=== PATIENT | female | born 1950 | race Two or more races ===

== ENCOUNTER 2024-12-08 08:07 | Emergency (ER) | payer MEDICARE, MEDICAID, SELFPAY ==
[2024-12-08 08:09] VITALS: BMI 24.5
--- NOTE | 2024-12-08 08:12 | EKG_ITS ---
[facility] Test Date: 2024-12-08 Pat Name: KLEVER JOHNSON Department: Room: - Gender: Female [employer]: : [id number] Requested By: ED Temporary Provider Order Number: [id number] Reading MD: ED Temporary Provider Measurements Intervals [place] Rate: 92 P: 63 PA: 159 QRS: 48 QRSD: 93 T: 41 QT: 364 QTc: 452 Interpretive Statements SINUS RHYTHM POSSIBLE LEFT ATRIAL ENLARGEMENT [-0.1mV P-WAVE IN V1/V2] POSSIBLE LEFT VENTRICULAR HYPERTROPHY [VOLTAGE CRITERIA PLUS LAE OR QRS WIDENING] NONSPECIFIC ST & T-WAVE ABNORMALITY Compared to ECG 11/27/2023 10:28:35 T-wave abnormality now present /store/S0/[id number].pdf
[2024-12-08 08:30] VITALS: BP 159/85; PULSE 106; RESP 16; TEMP 37.2; O2SAT 95; BMI 24.1
--- NOTE | 2024-12-08 08:31 | XR_ITS ---
Examination: PA lateral chest 2 views TECHNIQUE: Upright PA lateral chest 2 views Exam date and time: December 08, 2024 0846 hours Comparison November 27, 2023 INDICATIONS: Coughing beginning 5 days ago. FINDINGS: Bilateral foci of parenchymal disease consistent with pneumonia Normal heart size Basilar bronchitis pattern Prominent osteopenia IMPRESSION: Scattered areas of bilateral pneumonia
--- NOTE | 2024-12-08 08:32 | EDRME_ITS ---
Rapid Medical Screening Exam RME Arrival date/time: 12/08/24 08:07 74-year-old female presents to the emergency department complaints of right- sided chest pain worse with movement Chief Complaint: Chest Pain Vital signs: Vital Signs Temperature 98.9 F 12/08/24 08:30 Pulse Rate 106 H 12/08/24 08:30 Respiratory Rate 16 12/08/24 08:30 Blood Pressure 159/85 H 12/08/24 08:30 Pulse Oximetry (%) 95 12/08/24 08:30 Oxygen Delivery Method Room Air 12/08/24 08:30
[2024-12-08 09:21] LABS: Basophils # (Auto) 0.1 Thou/mm3 (0.0-0.2); Basophils % (Auto) 1 % (0-2.5); Eosinophils # (Auto) 0.2 Thou/mm3 (0.0-0.5); Eosinophils % (Auto) 2 % (0-10); Hematocrit 41.2 % (36.0-46.0); Hemoglobin 13.5 g/dL (12.0-16.0); Immature Granulocytes % (Auto) 0 % (0-0); Immature Granulocytes Auto 0.03 Thou/mm3 (0.00-0.00); Lymphocytes # (Auto) 2.6 Thou/mm3 (1.0-4.8); Lymphocytes % (Auto) 24 % (10-50); Mean Corpuscular HGB Conc 32.8 g/dl (31.0-37.0); Mean Corpuscular Hemoglobin 27.7 pg (25.0-35.0); Mean Corpuscular Volume 84 fL (80-100); Monocytes # (Auto) 1.1 Thou/mm3 (0.0-0.8); Monocytes % (Auto) 10 % (0-12); Neutrophils # (Auto) 6.9 Thou/mm3 (1.8-7.7); Neutrophils % (Auto) 64 % (37-80); Nucleated Red Blood Cell % 0 /100 WBC (0); Platelet Count 145 Thou/mm3 (140-440); RDW Standard Deviation 42.5 fL (36.4-46.3); Red Blood Count 4.88 Miln/mm3 (4.00-5.20); White Blood Count 10.8 Thou/mm3 (3.6-11.0)
[2024-12-08 09:40] LABS: INR 1.1 (0.9-1.3); Partial Thromboplastin Time 28.2 Seconds (22.0-36.0); Prothrombin Time 11.6 Seconds (9.0-12.2)
[2024-12-08 09:42] LABS: B-Type Natriuretic Peptide 82 pg/mL (0-100)
[2024-12-08 09:53] LABS: Alanine Aminotransferase < 7 U/L (10-49); Albumin, Serum 4.2 gm/dL (3.4-4.8); Albumin/Globulin Ratio 1.3 (1.2-2.2); Alkaline Phosphatase 82 U/L (46-116); Anion Gap 8 (7-16); Aspartate Amino Transferase 16 U/L (0-34); BUN/Creatinine Ratio 16 Ratio (12-20); Bilirubin,Total 1.3 mg/dL (0.3-1.2); Blood Urea Nitrogen 11 mg/dL (9-23); Calcium 9.4 mg/dL (8.3-10.6); Calcium (Corrected) 9.4 mg/dL (8.5-10.1); Carbon Dioxide 26.9 mMol/L (20.0-31.0); Chloride 104 mMol/L (98-107); Creatinine (Component) 0.7 mg/dL (0.6-1.3); Globulin 3.2 gm/dL (2.3-3.5); Glucose 108 mg/dL (74-106); Lipase 35 U/L (12-53); Magnesium 1.9 mg/dL (1.6-2.6); Osmolality,Calculated 277 (275-295); Potassium 3.3 mMol/L (3.4-5.1); Sodium 139 mMol/L (136-145); Total Protein 7.4 gm/dL (5.7-8.2); Troponin I < 0.002 ng/mL (0.0-0.045); eGFR > 60 See Note
--- NOTE | 2024-12-08 11:13 | PD.EDCHEST ---
ED Chest Pain RME/HPI General Chief Complaint: Chest Pain Stated Complaint: RIGHT SIDE CHEST PAIN SINCE 99 Time Seen by Provider: 12/08/24 11:13 Arrival date/time: 12/08/24 08:07 74 year old female with past medical history of HTN with c/o of chest pain since 99. Pt report intermittent dry cough for 2 weeks. LOCATION: Chest SEVERITY: Symptoms are described as being severe with limitations on activities of daily living CONTEXT: The patient is unable to identify any inciting events. DURATION/TIMING: The symptoms started approximately 2 weeks of cough, chest pain for 1 day due to cough ASSOCIATED SYMPTOMS: The patient is unable to identify any other associated symptoms. MODIFYING FACTORS: The patient is unable to identify any alleviating or aggravating symptoms. PERTINENT ROS: no fevers, no ripping or tearing sensations, denies any lower extremity edema and no unilateral swelling, no shortness of breath no nausea,vomiting, diarrhea, no dizziness/headache no rash no loc/syncope episode no abd/back pain no dsyuria,urgency,frequency REVIEW OF SYSTEMS: See History of Present Illness - with the exception of those mentioned in the history of present illness, all other systems reviewed and reported as negative GENERAL: In general the patient is awake, interactive, in an emergency department gurney. HEAD/EYES/EARS/NOSE/THROAT: normo-cephalic, atraumatic, mucus membranes are moist, anicteric, palpebral conjunctiva is pink, trachea is midline. CARDIOVASCULAR: regular rate and regular rhythm, no murmurs, heart sounds are not distant, strong pulses in all four extremities that are equal and symmetric bilateral upper and lower extremities, normal capillary refill. CHEST/PULMONARY: normal chest rise and fall, good air movement, clear to auscultation bilaterally, normal inspiratory to expiratory ratios without evidence of respiratory distress. NECK: No midline/Paraspinal tenderness, no step off ROM/Strenght intact No Kernig and bruzinski sign. No trauma ABDOMEN: soft, not tender, no masses appreciated BACK: normal range of motion without pain. NEUROLOGICAL: cranio-facial features are symmetric, moves all four extremities equally without obvious limitations or weakness. EXTREMITY: no tenderness to palpation over the long bones or large joints of the bilateral upper and lower extremities, no joint swelling, no joint erythema, no signs of trauma, no unilateral leg swelling and no peripheral edema. SKIN: warm, dry, well-perfused, no jaundice, no rash, no telangiectasias or petechia. PSYCH: calm, cooperative, no evidence of psychosis or agitation RME / HPI RME / HPI narrative: 12/08/24 08:07 74-year-old female presents to the emergency department complaints of right-sided chest pain worse with movement Related Data Previous Rx's ?Medication ?Instructions ?Recorded hydrocodone 5 mg-acetaminophen 325 1 tab PO QID PRN pain #14 tabs 09/07/18 mg tablet (Garfield) naproxen 500 mg tablet 500 mg PO Q12H PRN Headache #20 10/30/19 tabs sulfamethoxazole 800 1 tab PO BID #14 tabs 10/30/19 mg-trimethoprim 160 mg tablet (Bactrim DS) ibuprofen 600 mg tablet 600 mg PO Q6H PRN pain #10 tabs 04/09/23 levofloxacin 750 mg tablet 750 mg PO QDAY #7 tabs 04/09/23 cephalexin 500 mg capsule 500 mg PO TID #21 caps 05/03/23 potassium chloride 10 mEq 10 meq PO QDAY #3 tabs 11/27/23 tablet,extended release amoxicillin 875 mg-potassium 1 tab PO BID #14 tabs 12/08/24 clavulanate 125 mg tablet azithromycin 250 mg tablet 250 mg PO QDAY pna 4 days #4 tabs 12/08/24 benzonatate 200 mg capsule 200 mg PO BID PRN cough #30 caps 12/08/24 Allergies Allergy/AdvReac Type Severity Reaction Status Date / Time No Known Allergies Allergy Verified 12/08/24 08:10 Course Course Course Narrative: Patient presenting with cough and fever.? VS were reviewed and showed wnl, .? ?Lung exam noted to have clear.? Obtained and reviewed CXR, which showed bilateral pna .? ?At this time, it is felt that the most likely explanation for the patient's symptoms is pneumonia.? I also considered URI, bronchitis, pneumonia, pneumothorax, PE, but this appears less likely considering the data gathered thus far.? Patient was provided first dose of antibiotics and cough medication? while in the ED.? ? Supportive treatment options were discussed.? Patient to follow up with PCP closely.?? Impression:?? Community acquired pneumonia Plan:? Prescribed azithromycin, augmentin, tessalon pearles? Advised Pt on supportive measures, including smoking cessation and avoidance of second-hand smoke, OTC acetaminophen or ibuprofen for fever and body aches, advancement of fluids as tolerated, rest, and frequent hand-washing w/ soap and water. Instructed Pt to monitor for shaking chills or T>100.5degF, persistent cough >7-10d, hemoptysis, delirium or confusion, cyanosis, and respiratory distress.? Instructed Pt to f/up w/ PCP or ETC should Sx worsen or not improve.? Quality Measures none Orders Category Date Time Status EKG (ED ONLY) *Do not use* NOW Care 12/08/24 08:12 Completed EKG (ED Only) Stat Exams 12/08/24 08:12 Draft XR chest 2V Stat Exams 12/08/24 08:31 Completed B-Type Natriuretic Peptide Stat Lab 12/08/24 08:54 Completed CBC Stat Lab 12/08/24 08:54 Completed Comprehensive Metabolic Panel Stat Lab 12/08/24 08:54 Completed Lipase Stat Lab 12/08/24 08:54 Completed Magnesium Stat Lab 12/08/24 08:54 Completed Partial Thromboplastin Time Stat Lab 12/08/24 08:54 Completed Prothrombin Time with INR Stat Lab 12/08/24 08:54 Completed Troponin I Stat Lab 12/08/24 08:54 Completed Amoxicillin/Pot Clav 875 [Augmentin 875] Med 12/08/24 11:33 Discontinued 1 tab PO X1 ONE Azithromycin Po [Zithromax PO] Med 12/08/24 11:31 Discontinued 500 mg PO X1 ONE Benzonatate [Tessalon] Med 12/08/24 11:31 Discontinued 200 mg PO X1 ONE Vital Signs Vital signs: Vital Signs Temperature 98.9 F 12/08/24 08:30 Pulse Rate 106 H 12/08/24 08:30 Respiratory Rate 16 12/08/24 08:30 Blood Pressure 159/85 H 12/08/24 08:30 Pulse Oximetry (%) 95 12/08/24 08:30 Oxygen Delivery Method Room Air 12/08/24 08:30 Procedures -ED EKG Interpretation #1: Date of EK12/08/24 Rate: 92 EKG Impression: No acute ST-T changes, No ectopy, Sinus arrhythmia and No ischemic changes Chest Pain Patient data External records reviewed:: [facility] previous records Clinical information provided by:: patient Social determinants that could affect healthcare access:: none Patient has the following chronic illnesses:: in chart How is presenting disease/condition affected by chronic disease/condition?: uneffected by Evaluation data The following diagnostics were reviewed and interpreted by me:: lab results, radiology exam(s) and EKG tracing(s) Lab and/or radiology exams considered but not ordered:: n/a Interpretation Summary: cbc/cmp wnl trop negative bnp wnl cxr: Bilateral foci of parenchymal disease consistent with pneumonia Normal heart size Basilar bronchitis pattern Prominent osteopenia IMPRESSION: Scattered areas of bilateral pneumonia Medications / Prescriptions Medications or Prescriptions considered but not ordered:: n/a Medication administrations:: Medication Administration History Discontinued Medications Amoxicillin/Clavulanate Potassium (Amoxicillin/Pot Clav 875 Tablet) 1 tab PO X1 ONE Stop: 12/08/24 11:34 Azithromycin (Azithromycin 250 Mg Tablet) 500 mg PO X1 ONE Stop: 12/08/24 11:32 Benzonatate (Benzonatate 100 Mg Capsule) 200 mg PO X1 ONE; Protocol Stop: 12/08/24 11:32 n/a Consultations Consultation(s) initiated? (list below): No Diagnosis Most likely diagnosis given after review of the tests above:: bilateral pna Admission Indicated Admission indicated?: not indicated Admission Request Was there a request for admission?: No Disposition Plan Disposition Plan: Discharge Discharge Attestation Discharge Attestation: The patient and all family members were given an opportunity to ask questions and understood the discharge instructions. Discharge instructions specifically effects, indications for sooner follow up or return to the emergency department, and the expected course of current diagnosis. Patient condition: Stable Discharge Plan Plan Patient Disposition: HOME (Self Care) Health Concerns: Follow with PMD as directed Take tylenol or motrin as need Return to ED if sx worsen Prescriptions/Referrals Prescriptions/Med Rec: New amoxicillin-pot clavulanate 875-125 mg tablet 1 tab PO BID Qty: 14 0RF benzonatate 200 mg capsule 200 mg PO BID PRN (Reason: cough) Qty: 30 0RF azithromycin 250 mg tablet 250 mg PO QDAY 4 Days Qty: 4 0RF Rx Instructions: start on day 2 of therapy No Action hydrocodone-acetaminophen [Garfield] 5-325 mg tablet 1 tab PO QID MDD 4 PRN (Reason: pain) Qty: 14 0RF naproxen 500 mg tablet 500 mg PO Q12H PRN (Reason: Headache) Qty: 20 0RF Rx Instructions: administer with food or milk sulfamethoxazole-trimethoprim [Bactrim DS] 800-160 mg tablet 1 tab PO BID Qty: 14 0RF cephalexin 500 mg capsule 500 mg PO TID Qty: 21 0RF potassium chloride 10 mEq tablet extended release 10 meq PO QDAY Qty: 3 0RF levofloxacin 750 mg tablet 750 mg PO QDAY Qty: 7 0RF ibuprofen 600 mg tablet 600 mg PO Q6H PRN (Reason: pain) Qty: 10 0RF Referrals: Dennis Irby MD [Primary Care Provider] - In 1 week Problem List Clinical Impression: Bilateral pneumonia Patient/Caregiver Discharge Instructions Education Materials: ED Pneumonia (Adult) Print Language: Tamazight Stand Alone Forms: Dyan Award Info., Patient Portal Info Letter
[2024-12-08 11:27] VITALS: BP 180/99; PULSE 99; RESP 19; TEMP 37; O2SAT 96
[2024-12-08] MEDS: AMOXICILLIN/POT CLAV 875 TABLET 1 TAB PO (12:03)
[2024-12-08] MEDS: AZITHROMYCIN 250 MG TABLET 500 MG PO (12:03)
[2024-12-08] MEDS: BENZONATATE 100 MG CAPSULE 200 MG PO (12:23)
== END 2024-12-08 12:28 | disposition home or self-care (01) ==
PROVIDERS: Nurse Practitioner Primary Care; Emergency Provider Emergency Medicine; PCP Family Medicine
DX: J18.9 Pneumonia, unspecified organism (principal); I10 Essential (primary) hypertension
CPT/HCPCS: 36415; 71046; 80053; 83690; 83735; 83880; 84484; 85025; 85610; 85730; 93005; 99283; A9270

== ENCOUNTER 2024-12-19 10:46 | Emergency (ER) | payer MEDICARE, MEDICAID, SELFPAY ==
[2024-12-19 11:38] VITALS: BP 191/85; PULSE 83; RESP 14; TEMP 36.5; O2SAT 95
--- NOTE | 2024-12-19 12:17 | XR_ITS ---
Examination: Shoulder,left, 3 views Technique: Shoulder AP internal rotation, AP external rotation, Y view shoulder, 3 views Exam date and time :December 19, 2024 at 1226 hours INDICATIONS: Patient fell today with injury to the shoulder, shoulder pain. FINDINGS: Acute markedly displaced left humeral neck fracture, the shaft the humerus displaced medially at least 30 mm No shoulder dislocation IMPRESSION: Acute markedly displaced fracture left humeral neck
--- NOTE | 2024-12-19 12:17 | XR_ITS ---
Examination: Humerus 2 views left Technique: Humerus, AP lateral 2 views Date and time of exam: December 19, 2024 1224 hours INDICATIONS: Patient fell today with injury to the arm, arm pain. FINDINGS: Acute mildly displaced fracture humeral neck, upper humeral shaft displaced medially at least 30 mm More distal shaft of the humerus intact IMPRESSION: Acute comminuted markedly displaced fracture left humeral neck
--- NOTE | 2024-12-19 14:20 | XR_ITS ---
Examination: AP chest single view TECHNIQUE: Upright AP chest single view Exam date and time: December 19, 2024 1459 hours Comparison December 08, 2024 INDICATIONS: Patient fell today with injury to the chest, chest pain FINDINGS: Acute displaced fracture humeral neck on the left Focal nodular parenchymal disease right midlung and parenchymal disease left base again noted as well as right base Normal heart size IMPRESSION: Acute displaced comminuted fracture left humeral neck Bilateral parenchymal areas of disease consistent with pneumonia
--- NOTE | 2024-12-19 14:36 | XR_ITS ---
Examination: CT left shoulder, without contrast. 2-D sagittal reconstructions. 2-D coronal reconstructions. 3-D reconstructions. Date and time of exam:December 19, 2024 1511 hours INDICATIONS: Patient fell today with injury to left shoulder, left shoulder pain CTDI: vol (mGy):5.03 DLP: (mGycm):115 Technique: Multiple 1.25 mm axial sections of the left shoulder have been obtained. 2-D sagittal and coronal reconstructions have been obtained. 3-D reconstructions have been obtained. Low dose protocols were performed. One or more of the following dose reduction techniques were used; automated exposure control, adjustment of the mA and/or KV according to patient size, use of iterative reconstruction technique. Findings: Acute comminuted fracture left humeral neck Marked displacement at the fracture site, the humeral shaft displaced medially at least 3 cm relative to the humeral head No dislocation of the humeral head No AC joint separation Fracture line from the humeral neck fracture extends to the greater tuberosity of the humeral head axial image 40 Scapula intact No pneumothorax No definite rib fractures IMPRESSION: Acute comminuted markedly displaced fracture left humeral neck
[2024-12-19] MEDS: HYDROcodone/APAP 10/325 TAB PO (15:27)
--- NOTE | 2024-12-19 15:29 | PD.EDFALL ---
ED Fall Injury RME/HPI General Chief Complaint: Fall Stated Complaint: Fall left upper arm injury Time Seen by Provider: 12/19/24 11:45 Arrival date/time: 12/19/24 10:46 Related Data Previous Rx's ?Medication ?Instructions ?Recorded hydrocodone 5 mg-acetaminophen 325 1 tab PO QID PRN pain #14 tabs 09/07/18 mg tablet (Ryegate) naproxen 500 mg tablet 500 mg PO Q12H PRN Headache #20 10/30/19 tabs sulfamethoxazole 800 1 tab PO BID #14 tabs 10/30/19 mg-trimethoprim 160 mg tablet (Bactrim DS) ibuprofen 600 mg tablet 600 mg PO Q6H PRN pain #10 tabs 04/09/23 levofloxacin 750 mg tablet 750 mg PO QDAY #7 tabs 04/09/23 cephalexin 500 mg capsule 500 mg PO TID #21 caps 05/03/23 potassium chloride 10 mEq 10 meq PO QDAY #3 tabs 11/27/23 tablet,extended release amoxicillin 875 mg-potassium 1 tab PO BID #14 tabs 12/08/24 clavulanate 125 mg tablet benzonatate 200 mg capsule 200 mg PO BID PRN cough #30 caps 12/08/24 Allergies Allergy/AdvReac Type Severity Reaction Status Date / Time No Known Allergies Allergy Verified 12/19/24 10:49 Course Orders Category Date Time Status EKG (ED ONLY) *Do not use* NOW Care 12/19/24 14:36 Active Insert IV NOW Care 12/19/24 14:[address] shoulder LT wo con Stat Exams 12/19/24 14:36 Taken EKG (ED Only) Stat Exams 12/19/24 14:36 Ordered XR chest 1V Stat Exams 12/19/24 14:20 Completed XR humerus LT MIN 2V Stat Exams 12/19/24 12:17 Completed XR shoulder LT min 2V Stat Exams 12/19/24 12:17 Completed CBC Stat Lab 12/19/24 15:21 Received CMP [Comprehensive Metabolic Panel] Stat Lab 12/19/24 15:21 Received Acetaminophen Tab [Tylenol Tab] Med 12/19/24 14:00 Discontinued 650 mg PO X1 ONE HYDROcodone/APAP 10/325 [Ryegate 10/325] Med 12/19/24 15:25 Discontinued 1 tab PO X1 ONE Morphine Inj Med 12/19/24 14:20 Discontinued 2 mg IVP X1 ONE Ondansetron Inj [Zofran Inj] Med 12/19/24 14:20 Discontinued 4 mg IV X1 ONE Vital Signs Vital signs: Vital Signs Temperature 97.7 F 12/19/24 11:38 Pulse Rate 83 12/19/24 11:38 Respiratory Rate 14 12/19/24 11:38 Blood Pressure 191/85 H 12/19/24 11:38 Pulse Oximetry (%) 95 12/19/24 11:38 Oxygen Delivery Method Room Air 12/19/24 11:38 Fall Medications / Prescriptions Medication administrations:: Medication Administration History Discontinued Medications Acetaminophen (Acetaminophen 325 Mg Tablet) 650 mg PO X1 ONE Stop: 12/19/24 14:01 Last Admin: 12/19/24 13:57 Dose: Not Given Documented By: LILY Non-Admin Reason: Cancelled by Provider Hydrocodone Bitart/Acetaminophen (Hydrocodone/Apap 10/325 Tab) 1 tab PO X1 ONE Stop: 12/19/24 15:26 Last Admin: 12/19/24 15:27 Dose: 1 tab Documented By: LILY Morphine Sulfate (Morphine Sulf Inj 10 Mg/Ml Vial) 2 mg IVP X1 ONE Stop: 12/19/24 14:21 Last Admin: 12/19/24 15:28 Dose: Not Given Documented By: LILY Non-Admin Reason: Cancelled by Provider Ondansetron HCl (Ondansetron Inj 2 Mg/Ml Inj 2 Ml) 4 mg IV X1 ONE; Protocol Stop: 12/19/24 14:21 Discharge Plan Prescriptions/Referrals Prescriptions/Med Rec: No Action hydrocodone-acetaminophen [Ryegate] 5-325 mg tablet 1 tab PO QID MDD 4 PRN (Reason: pain) Qty: 14 0RF naproxen 500 mg tablet 500 mg PO Q12H PRN (Reason: Headache) Qty: 20 0RF Rx Instructions: administer with food or milk sulfamethoxazole-trimethoprim [Bactrim DS] 800-160 mg tablet 1 tab PO BID Qty: 14 0RF cephalexin 500 mg capsule 500 mg PO TID Qty: 21 0RF potassium chloride 10 mEq tablet extended release 10 meq PO QDAY Qty: 3 0RF amoxicillin-pot clavulanate 875-125 mg tablet 1 tab PO BID Qty: 14 0RF benzonatate 200 mg capsule 200 mg PO BID PRN (Reason: cough) Qty: 30 0RF levofloxacin 750 mg tablet 750 mg PO QDAY Qty: 7 0RF ibuprofen 600 mg tablet 600 mg PO Q6H PRN (Reason: pain) Qty: 10 0RF Referrals: No Primary/Family,Physician [Primary Care Provider] - In 1 week Patient/Caregiver Discharge Instructions Print Language: Portuguese
[2024-12-19 15:34] LABS: Basophils % (Auto) 0 % (0-2.5); Eosinophils % (Auto) 0 % (0-10); Hemoglobin 13.2 g/dL (12.0-16.0); Immature Granulocytes % (Auto) 1 % (0-0); Immature Granulocytes Auto 0.09 Thou/mm3 (0.00-0.00); Lymphocytes # (Auto) 1.5 Thou/mm3 (1.0-4.8); Lymphocytes % (Auto) 8 % (10-50); Mean Corpuscular HGB Conc 33.8 g/dl (31.0-37.0); Mean Corpuscular Hemoglobin 28.1 pg (25.0-35.0); Mean Corpuscular Volume 83 fL (80-100); Monocytes # (Auto) 0.5 Thou/mm3 (0.0-0.8); Monocytes % (Auto) 3 % (0-12); Neutrophils # (Auto) 16.1 Thou/mm3 (1.8-7.7); Neutrophils % (Auto) 89 % (37-80); Nucleated Red Blood Cell % 0 /100 WBC (0); Platelet Count 187 Thou/mm3 (140-440); RDW Standard Deviation 41.7 fL (36.4-46.3); White Blood Count 18.1 Thou/mm3 (3.6-11.0)
[2024-12-19 15:55] LABS: Alanine Aminotransferase 19 U/L (10-49); Albumin, Serum 4.1 gm/dL (3.4-4.8); Albumin/Globulin Ratio 1.3 (1.2-2.2); Alkaline Phosphatase 79 U/L (46-116); Anion Gap 11 (7-16); Aspartate Amino Transferase 31 U/L (0-34); BUN/Creatinine Ratio 21 Ratio (12-20); Bilirubin,Total 0.6 mg/dL (0.3-1.2); Blood Urea Nitrogen 15 mg/dL (9-23); Calcium 9.5 mg/dL (8.3-10.6); Calcium (Corrected) 9.5 mg/dL (8.5-10.1); Carbon Dioxide 25.1 mMol/L (20.0-31.0); Chloride 104 mMol/L (98-107); Creatinine (Component) 0.7 mg/dL (0.6-1.3); Globulin 3.1 gm/dL (2.3-3.5); Glucose 136 mg/dL (74-106); Osmolality,Calculated 282 (275-295); Potassium 3.4 mMol/L (3.4-5.1); Sodium 140 mMol/L (136-145); Total Protein 7.2 gm/dL (5.7-8.2); eGFR > 60 See Note
--- NOTE | 2024-12-19 16:27 | PC.NURSE ---
Dr. Samuels is bedside, put splint and sling on pt.
--- NOTE | 2024-12-19 16:40 | ESCONSULT_ITS ---
HPI Consult details Reason for consultation narrative: Pain left shoulder History of present illness: Patient is a very active 74-year-old. She was working her garden and fell injuring her left shoulder girdle. Other complaint superficial abrasions right knee Past Medical History Past Medical History CARDIAC: Positive Cardiac Disorders and Hypertension; Negative Congestive Heart Failure RESPIRATORY: Negative Chronic Obstructive Pulmonary Disease (COPD) GENITOURINARY: Negative Renal Disease MUSCULOSKELETAL: Positive Musculoskeletal Disorders and Arthritis ENDOCRINE: Negative Diabetes Mellitus Type 1 or Diabetes Mellitus Type 2 Social History SMOKING STATUS: Never smoker Meds Home Medications and Allergies Allergies Allergy/AdvReac Type Severity Reaction Status Date / Time No Known Allergies Allergy Verified 12/19/24 10:49 Exam Vital Signs Temp Pulse Resp BP Pulse Ox O2 Del Method 97.7 F 83 14 191/85 H 95 Room Air 12/19/24 11:38 12/19/24 11:38 12/19/24 11:38 12/19/24 11:38 12/19/24 11:38 12/19/24 11:38 Blood pressure 191/85 Narrative Exam Patient is alert and oriented. She has complaints of pain in her left shoulder girdle with swelling. No pain left elbow left wrist hand or fingers. Excellent range of motion fingers left hand. Able to flex all fingers distal palmar crease. Left hand very warm. Pulses 2+ and equal radial pulse. Results - Ortho Labs 12/19/24 15:21 12/19/24 15:21 Labs: Short CBC 12/19/24 Range/Units 15:21 WBC 18.1 H (3.6-11.0) Thou/mm3 Hgb 13.2 (12.0-16.0) g/dL Hct 39.0 (36.0-46.0) % Plt Count 187 D (140-440) Thou/mm3 BMP 12/19/24 15:21 Sodium 140 Potassium 3.4 Chloride 104 Carbon Dioxide 25.1 BUN 15 Creatinine 0.7 Glucose 136 H Calcium 9.5 Liver Function 12/19/24 Range/Units 15:21 Total Bilirubin 0.6 (0.3-1.2) mg/dL AST 31 (0-34) U/L ALT 19 (10-49) U/L Alkaline Phosphatase 79 (46-116) U/L Albumin 4.1 (3.4-4.8) gm/dL Hemoglobin 13.2 Assessment & Plan Additional Assessment Additional comments: Left proximal humerus fracture surgical neck type. Shaft displaced 1 bone diameter medially. Patient placed and Ortho-Glass hanging splint. Plan Proximal left humerus fracture surgical neck type with displacement humeral shaft 1 bone diameter medially. I contacted Dr. Paige Broderick and she said she would be happy to see her on Sunday schedule surgery for Sunday.. Dr. Broderick's phone number is [phone] [place] [address] I told the family that she will need surgery and surgery would be planned for Sunday. ER doctor is going to send her home with [place]. If marked increase in pain numbness tingling fingers please return to ER. Please give family the CDs of the CT scan and x-ray. I gave daughter my cell phone number and told them to call if there is any problem. If by chance they cannot get a hold of me they should return to the ER
--- NOTE | 2024-12-19 18:39 | PD.EDFALL ---
ED Fall Injury RME/HPI General Chief Complaint: Fall Stated Complaint: Fall left upper arm injury Time Seen by Provider: 12/19/24 11:45 Arrival date/time: 12/19/24 10:46 RME / HPI RME / HPI Narrative: 74 year old female with history of hypertension presents to the ED for evaluation of left upper extremity pain after fall today. Patient states she was gardening when she tripped and fell, landing on both knees and landed with arms extended. While in the ED complains of left shoulder pain, knee pain, and bruising to both thumbs. States she was able to stand and ambulatory on fall, no prolonged down time. No other injuries reported. Related Data Previous Rx's ?Medication ?Instructions ?Recorded hydrocodone 5 mg-acetaminophen 325 1 tab PO QID PRN pain #14 tabs 09/07/18 mg tablet ([place]) naproxen 500 mg tablet 500 mg PO Q12H PRN Headache #20 10/30/19 tabs sulfamethoxazole 800 1 tab PO BID #14 tabs 10/30/19 mg-trimethoprim 160 mg tablet (Bactrim DS) ibuprofen 600 mg tablet 600 mg PO Q6H PRN pain #10 tabs 04/09/23 levofloxacin 750 mg tablet 750 mg PO QDAY #7 tabs 04/09/23 cephalexin 500 mg capsule 500 mg PO TID #21 caps 05/03/23 potassium chloride 10 mEq 10 meq PO QDAY #3 tabs 11/27/23 tablet,extended release amoxicillin 875 mg-potassium 1 tab PO BID #14 tabs 12/08/24 clavulanate 125 mg tablet benzonatate 200 mg capsule 200 mg PO BID PRN cough #30 caps 12/08/24 docusate sodium 100 mg capsule 100 mg PO TID #30 caps 12/19/24 (Colace) hydrocodone 5 mg-acetaminophen 325 1 tab PO Q8H PRN pain #10 tabs 12/19/24 mg tablet Allergies Allergy/AdvReac Type Severity Reaction Status Date / Time No Known Allergies Allergy Verified 12/19/24 10:49 Review of Systems Review of Systems Narrative Review of Systems: Gen: No fever, no chills, no weight loss EYES: No discharge, no visual changes, no pain HEENT: No ear pain, no congestion, no sore throat PULM: no shortness of breath, no cough, no congestion CV: No chest pain, no dyspnea on exertion, no palpitations, no chest tightness GI: No nausea, no vomiting, no diarrhea, no pain, no constipation : No frequency, no urgency,? no dysuria Musc/skel: +LUE pain, +BL knee pain, +bruising to BL thumbs, no back pain Skin: No rash, no ecchymosis, no lesions Neuro: No weakness, no headache Past Medical History Past Medical History CARDIAC: Positive Cardiac Disorders and Hypertension; Negative Congestive Heart Failure RESPIRATORY: Negative Chronic Obstructive Pulmonary Disease (COPD) GENITOURINARY: Negative Renal Disease MUSCULOSKELETAL: Positive Musculoskeletal Disorders and Arthritis ENDOCRINE: Negative Diabetes Mellitus Type 1 or Diabetes Mellitus Type 2 Social History SMOKING STATUS: Never smoker ED Exam Narrative Physical exam: GENERAL APPEARANCE: AxOx4, no obvious distress, nontoxic appearing HEENT: NC, AT. MMM. EOMI, clear conjunctiva, oropharynx clear. NECK: Supple without lymphadenopathy. No stiffness or restricted ROM. HEART: Normal rate and regular rhythm, normal S1/S1, no m/r/g LUNGS: CTAB, moving air well. No crackles or wheezes are heard. ABDOMEN: Soft, nontender, nondistended with good bowel sounds heard. BACK: No midline C/T/L spine pain or deformity, No CVAT, no obvious deformity. EXTREMITIES: Left upper extremity splinted, held in internal rotation, not squared off at the shoulder. Bruising with tenderness to the pad of left thumb, superficial abrasion over bilateral knee pads, no point tenderness to patella. Without cyanosis, clubbing or edema. NEUROLOGICAL: Grossly nonfocal. Alert and oriented, moving all 4 extremities. CN not formally tested but appear grossly intact. Skin: Warm and dry without any rash. Course Quality Measures none Orders Category Date Time Status EKG (ED ONLY) *Do not use* NOW Care 12/19/24 14:36 Completed Insert IV NOW Care 12/19/24 14:[address] shoulder LT wo con Stat Exams 12/19/24 14:36 Completed EKG (ED Only) Stat Exams 12/19/24 14:36 Ordered XR chest 1V Stat Exams 12/19/24 14:20 Completed XR humerus LT MIN 2V Stat Exams 12/19/24 12:17 Completed XR shoulder LT min 2V Stat Exams 12/19/24 12:17 Completed CBC Stat Lab 12/19/24 15:21 Completed CMP [Comprehensive Metabolic Panel] Stat Lab 12/19/24 15:21 Completed Acetaminophen Tab [Tylenol Tab] Med 12/19/24 14:00 Discontinued 650 mg PO X1 ONE HYDROcodone/APAP 10/325 [[place] 10/325] Med 12/19/24 15:25 Discontinued 1 tab PO X1 ONE Morphine Inj Med 12/19/24 14:20 Discontinued 2 mg IVP X1 ONE Ondansetron Inj [Zofran Inj] Med 12/19/24 14:20 Discontinued 4 mg IV X1 ONE Vital Signs Vital signs: Vital Signs Temperature 97.7 F 12/19/24 11:38 Pulse Rate 83 12/19/24 11:38 Respiratory Rate 14 12/19/24 11:38 Blood Pressure 191/85 H 12/19/24 11:38 Pulse Oximetry (%) 95 12/19/24 11:38 Oxygen Delivery Method Room Air 12/19/24 11:38 Pulse ox is 95% on room air which is adequate. Fall MDM Narrative MDM Narrative:: Etta Luna am scribing for and in the presence of Dr. Dent. Patient data External records reviewed:: [facility] previous records (I reviewed ED visit on 12/08/2024) Clinical information provided by:: patient Social determinants that could affect healthcare access:: none Patient has the following chronic illnesses:: Hypertension How is presenting disease/condition affected by chronic disease/condition?: uneffected by Evaluation data The following diagnostics were reviewed and interpreted by me:: lab results, radiology exam(s) and EKG tracing(s) (Sinus rhythm, rate 92, normal axis, normal intervals, no STEMI ) Lab and/or radiology exams considered but not ordered:: none Interpretation Summary: Ordering Physician: Jose Juan CarreonVA [facility] Sar[facility] Date of Service: 12/19/24 Procedure(s): XR humerus LT MIN 2V Accession Number(s): [id number] cc: Stanley Hollis MD; NO PRIMARY/FAMILY,PHYSICIAN; Jose Juan CarreonVA [facility] Saravia~ Examination: Humerus 2 views left Technique: Humerus, AP lateral 2 views Date and time of exam: December 19, 2024 1224 hours INDICATIONS: Patient fell today with injury to the arm, arm pain. FINDINGS: Acute mildly displaced fracture humeral neck, upper humeral shaft displaced medially at least 30 mm More distal shaft of the humerus intact IMPRESSION: Acute comminuted markedly displaced fracture left humeral neck Dictated By:Stanley Hollis MD Signed By:<Electronically signed by Stanley Hollis MD in OV>12/19/24 1304 Ordering Physician: Jose Juan [facility]reonCASS [facility] Holland Date of Service: 12/19/24 Procedure(s): XR shoulder LT min 2V Accession Number(s): [id number] cc: Stanley Hollis MD; NO PRIMARY/FAMILY,PHYSICIAN; Jose Juan CarreonVA [facility] Sar[facility]~ Examination: Shoulder,left, 3 views Technique: Shoulder AP internal rotation, AP external rotation, Y view shoulder, 3 views Exam date and time :December 19, 2024 at 1226 hours INDICATIONS: Patient fell today with injury to the shoulder, shoulder pain. FINDINGS: Acute markedly displaced left humeral neck fracture, the shaft the humerus displaced medially at least 30 mm No shoulder dislocation IMPRESSION: Acute markedly displaced fracture left humeral neck Dictated By:Stanley Hollis MD Signed By:<Electronically signed by Stanley Hollis MD in OV>12/19/24 1304 Ordering Physician: Ness Manzano ([facility]) Date of Service: 12/19/24 Procedure(s): XR chest 1V Accession Number(s): [id number] cc: Stanley Hollis MD; NO PRIMARY/FAMILY,PHYSICIAN; Jose Juan CarreonVA [facility]~ Examination: AP chest single view TECHNIQUE: Upright AP chest single view Exam date and time: December 19, 2024 1459 hours Comparison December 08, 2024 INDICATIONS: Patient fell today with injury to the chest, chest pain FINDINGS: Acute displaced fracture humeral neck on the left Focal nodular parenchymal disease right midlung and parenchymal disease left base again noted as well as right base Normal heart size IMPRESSION: Acute displaced comminuted fracture left humeral neck Bilateral parenchymal areas of disease consistent with pneumonia Dictated By:Stanley Hollis MD Signed By:<Electronically signed by Stanley Hollis MD in OV>12/19/249 Ordering Physician: Jose Juan CarreonVA [facility] Sar[facility] Date of Service: 12/19/24 Procedure(s): CT shoulder LT wo con Accession Number(s): [id number] cc: Stanley Hollis MD; NO PRIMARY/FAMILY,PHYSICIAN; JoseJ uan CarreonVA [facility] Saravia~ Examination: CT left shoulder, without contrast. 2-D sagittal reconstructions. 2-D coronal reconstructions. 3-D reconstructions. Date and time of exam:December 19, 2024 1511 hours INDICATIONS: Patient fell today with injury to left shoulder, left shoulder pain CTDI: vol (mGy):5.03 DLP: (mGycm):115 Technique: Multiple 1.25 mm axial sections of the left shoulder have been obtained. 2-D sagittal and coronal reconstructions have been obtained. 3-D reconstructions have been obtained. Low dose protocols were performed. One or more of the following dose reduction techniques were used; automated exposure control, adjustment of the mA and/or KV according to patient size, use of iterative reconstruction technique. Findings: Acute comminuted fracture left humeral neck Marked displacement at the fracture site, the humeral shaft displaced medially at least 3 cm relative to the humeral head No dislocation of the humeral head No AC joint separation Fracture line from the humeral neck fracture extends to the greater tuberosity of the humeral head axial image 40 Scapula intact No pneumothorax No definite rib fractures IMPRESSION: Acute comminuted markedly displaced fracture left humeral neck Dictated By:Stanley Hollis MD Signed By:<Electronically signed by Stanley Hollis MD in OV>12/19/24 1534 Medications / Prescriptions Medications or Prescriptions considered but not ordered:: None Medication administrations:: Medication Administration History Discontinued Medications Acetaminophen (Acetaminophen 325 Mg Tablet) 650 mg PO X1 ONE Stop: 12/19/24 14:01 Last Admin: 12/19/24 13:57 Dose: Not Given Documented By: LILY Non-Admin Reason: Cancelled by Provider Hydrocodone Bitart/Acetaminophen (Hydrocodone/Apap 10/325 Tab) 1 tab PO X1 ONE Stop: 12/19/24 15:26 Last Admin: 12/19/24 15:27 Dose: 1 tab Documented By: LILY Morphine Sulfate (Morphine Sulf Inj 10 Mg/Ml Vial) 2 mg IVP X1 ONE Stop: 12/19/24 14:21 Last Admin: 12/19/24 15:28 Dose: Not Given Documented By: LILY Non-Admin Reason: Cancelled by Provider Ondansetron HCl (Ondansetron Inj 2 Mg/Ml Inj 2 Ml) 4 mg IV X1 ONE; Protocol Stop: 12/19/24 14:21 Last Admin: 12/19/24 17:48 Dose: Not Given Documented By: CARI Non-Admin Reason: Patient Refused See above Consultations Consultation(s) initiated? (list below): Yes Consultation #1 (Physician, Specialty, Details): I spoke with ortho Dr. Samuels who will come evaluate the patient in the ED. Consultation #2 (Physician, Specialty, Details): Ortho Dr. Samuels has evaluated the patient, applied a splint, and contacted Dr. Paige Broderick. States Dr. Broderick will see the patient Sunday and schedule her for surgery on Sunday. Diagnosis Fall Differential Diagnosis: fracture of wrist, compression fracture and other (Dislocation) Most likely diagnosis given after review of the tests above:: Proximal humeral fracture Skin abrasion Contusion of finger Admission Indicated Admission indicated?: not indicated Admission Request Was there a request for admission?: No Disposition Plan Disposition Plan: Discharge Discharge Attestation Discharge Attestation: The patient and all family members were given an opportunity to ask questions and understood the discharge instructions. Discharge instructions specifically effects, indications for sooner follow up or return to the emergency department, and the expected course of current diagnosis. Patient condition: Stable Discharge Plan Plan Patient Disposition: HOME (Self Care) Patient condition on transfer: Stable Prescriptions/Referrals Prescriptions/Med Rec: New hydrocodone-acetaminophen 5-325 mg tablet 1 tab PO Q8H MDD 3 tabs/day PRN (Reason: pain) Qty: 10 0RF docusate sodium [Colace] 100 mg capsule 100 mg PO TID Qty: 30 0RF No Action hydrocodone-acetaminophen [[place]] 5-325 mg tablet 1 tab PO QID MDD 4 PRN (Reason: pain) Qty: 14 0RF naproxen 500 mg tablet 500 mg PO Q12H PRN (Reason: Headache) Qty: 20 0RF Rx Instructions: administer with food or milk sulfamethoxazole-trimethoprim [Bactrim DS] 800-160 mg tablet 1 tab PO BID Qty: 14 0RF cephalexin 500 mg capsule 500 mg PO TID Qty: 21 0RF potassium chloride 10 mEq tablet extended release 10 meq PO QDAY Qty: 3 0RF amoxicillin-pot clavulanate 875-125 mg tablet 1 tab PO BID Qty: 14 0RF benzonatate 200 mg capsule 200 mg PO BID PRN (Reason: cough) Qty: 30 0RF levofloxacin 750 mg tablet 750 mg PO QDAY Qty: 7 0RF ibuprofen 600 mg tablet 600 mg PO Q6H PRN (Reason: pain) Qty: 10 0RF Referrals: No Primary/Family,Physician [Primary Care Provider] - In 1 week Problem List Clinical Impression: Proximal humeral fracture, Skin abrasion, Contusion of finger Patient/Caregiver Discharge Instructions Education Materials: ED Fracture, Upper Extremity Additional Instructions: Proximal left humerus fracture surgical neck type with displacement humeral shaft [address] Paige Broderick was contacted and she said she would be happy to see her on Sunday schedule surgery for Sunday. Dr. Broderick's phone number is [phone] [place] [address] [place]. If marked increase in pain numbness tingling fingers please return to ER. Return to the ED if your symptoms worsen. Print Language: [place] Stand Alone Forms: [employer] Award Info., Patient Portal Info Letter
== END 2024-12-19 17:50 | disposition home or self-care (01) ==
PROVIDERS: Nurse Practitioner Primary Care; Emergency Provider Emergency Medicine
DX: S42.202A Unspecified fracture of upper end of left humerus, initial encounter for closed fracture (principal); S60.00XA Contusion of unspecified finger without damage to nail, initial encounter; W01.0XXA Fall on same level from slipping, tripping and stumbling without subsequent striking against object, initial encounter; Y93.H2 Activity, gardening and landscaping
CPT/HCPCS: 29105; 36415; 71045; 73030; 73060; 73200; 80053; 85025; 99284; A9270

== ENCOUNTER → 2024-12-29 | Outpatient (CLI) | payer MEDICARE, MEDICAID, SELFPAY ==
--- NOTE | 2024-12-29 12:30 | XR_ITS ---
Examination: Thyroid sonography complete TECHNIQUE: Grayscale sonographic images thyroid lobes, color flow analysis Exam date and time: December 29, 2024 1226 hours INDICATIONS: Abnormal laboratory thyroid examination one week ago FINDINGS: Right thyroid 4.2 cm Lower pole nodules 6 x 5 mm, calcifications 3 x 3 mm, 2 x 2 mm Left thyroid 4.1 cm Upper pole nodule 6 x 6 mm Small cyst at the lower pole of the left thyroid 7 x 5 mm IMPRESSION: Bilateral small thyroid nodules as above
== END | disposition home or self-care (01) ==
LOC: CDIM 12:08
PROVIDERS: Referring Provider Family Medicine; Visit Provider Family Medicine
DX: E04.2 Nontoxic multinodular goiter (principal)
CPT/HCPCS: 76536

== ENCOUNTER → 2025-02-02 | Outpatient (CLI) | payer MEDICARE, MEDICAID, SELFPAY ==
[2025-01-30 10:41] LABS: Basophils % (Auto) 1 % (0-2.5); Eosinophils # (Auto) 0.3 Thou/mm3 (0.0-0.5); Eosinophils % (Auto) 5 % (0-10); Hematocrit 40.7 % (36.0-46.0); Hemoglobin 13.4 g/dL (12.0-16.0); Immature Granulocytes % (Auto) 0 % (0-0); Lymphocytes # (Auto) 2.1 Thou/mm3 (1.0-4.8); Lymphocytes % (Auto) 39 % (10-50); Mean Corpuscular HGB Conc 32.9 g/dl (31.0-37.0); Mean Corpuscular Hemoglobin 28.4 pg (25.0-35.0); Mean Corpuscular Volume 86 fL (80-100); Monocytes # (Auto) 0.5 Thou/mm3 (0.0-0.8); Monocytes % (Auto) 10 % (0-12); Neutrophils # (Auto) 2.4 Thou/mm3 (1.8-7.7); Neutrophils % (Auto) 45 % (37-80); Nucleated Red Blood Cell % 0 /100 WBC (0); Platelet Count 141 Thou/mm3 (140-440); RDW Standard Deviation 43.1 fL (36.4-46.3); Red Blood Count 4.72 Miln/mm3 (4.00-5.20); White Blood Count 5.3 Thou/mm3 (3.6-11.0)
[2025-01-30 10:55] LABS: INR 1.1 (0.9-1.3); Partial Thromboplastin Time 26.7 Seconds (22.0-36.0); Prothrombin Time 11.9 Seconds (9.0-12.2)
--- NOTE | 2025-02-02 | XR_ITS ---
Exam: Ultrasound-guided right thyroid biopsy. Date and time: 02/02/2025, 923 AM Indication: Left thyroid nodule Comparison exam: 12/29/2024 Technique: After a discussion of risks and benefits informed written consent was obtained. A timeout was completed verifying correct patient, procedure, site, positioning. The patient was placed in the supine position on the exam table. Preliminary ultrasound examination demonstrated a heterogeneous nodule in the left thyroid lobe. This was targeted for fine-needle aspiration. The overlying skin was cleaned and draped in normal sterile surgical fashion. 10 cc of 1% lidocaine was used for local anesthesia. Using ultrasound guidance a 25-gauge needle was sequentially advanced into the targeted mass. Multiple aspirates were obtained and placed in solution and sent to laboratory for analysis. The needle was withdrawn and hemostasis was achieved. The access site was covered with a sterile dressing. There were no immediate complications. IMPRESSION: Successful left thyroid nodule fine needle aspiration as above.
--- NOTE | 2025-02-02 09:30 | XR_ITS ---
Exam: Ultrasound-guided right thyroid biopsy. Date and time: 02/02/2025, 9:17 AM Indication: Right thyroid nodule Comparison exam 12/29/2024 Technique: After a discussion of risks and benefits informed written consent was obtained. A timeout was completed verifying correct patient, procedure, site, positioning. The patient was placed in the supine position on the exam table. Preliminary ultrasound examination demonstrated a heterogeneous nodule in the right thyroid lobe. This was targeted for fine-needle aspiration. The overlying skin was cleaned and draped in normal sterile surgical fashion. 10 cc of 1% lidocaine was used for local anesthesia. Using ultrasound guidance a 25-gauge needle was sequentially advanced into the targeted mass. Multiple aspirates were obtained and placed in solution and sent to laboratory for analysis. The needle was withdrawn and hemostasis was achieved. The access site was covered with a sterile dressing. There were no immediate complications. IMPRESSION: Successful right thyroid nodule fine needle aspiration as above.
== END | disposition home or self-care (01) ==
LOC: SDIM 07:50
PROVIDERS: Radiology Diagnostic Radiology; PCP Family Medicine; Referring Provider Family Medicine; Visit Provider Family Medicine
DX: E04.2 Nontoxic multinodular goiter (principal); Z01.812 Encounter for preprocedural laboratory examination
CPT/HCPCS: 10005; 10006; 36415; 85025; 85610; 85730